=== PATIENT | female | born 1990 | race Caucasian/White ===

== ENCOUNTER → 2016-08-03 | Outpatient (CLI) | payer OTHER ==
[~2016-08-03] MED LIST: BUSP30TA PO; No meds per pt.
[2016-08-03 09:51] LABS: C-REACTIVE PROTEIN, QUANT 0.6 mg/dL (0.02-0.49)
== END | disposition home or self-care (01) ==
LOC: LAB 09:05
PROVIDERS: ATTEND Nurse Practitioner
DX: R53.83 Other fatigue (principal); R76.0 Raised antibody titer; M25.50 Pain in unspecified joint
CPT/HCPCS: 36415; 82550; 82570; 84156; 85651; 85730; 86140; 86160; 86225; 86235

== ENCOUNTER 2016-09-09 23:30 | Emergency (ER) | payer OTHER ==
[~2016-09-09] VITALS: Ht 165.1 cm; Wt 96.0 kg
[2016-09-09] MEDS ORDERED: LITH150C PO (23:40)
[2016-09-09] MEDS ORDERED: OLAN5TAB3 PO (23:40)
[2016-09-10] MEDS ORDERED: DIPHENHYDRAMINE 50 MG/ML, 1ML IM ONE
[2016-09-10] MEDS ORDERED: HALOPERIDOL 5 MG/ML IM ONE
[2016-09-10] MEDS ORDERED: LORazepam 2 MG/ML, 1ML IM ONE
[2016-09-10] MEDS ORDERED: HALOPERIDOL 5 MG/ML ONE (00:21)
[2016-09-10] MEDS ORDERED: DIPHENHYDRAMINE 50 MG/ML, 1ML ONE (00:21)
[2016-09-10] MEDS ORDERED: LORazepam 2 MG/ML, 1ML ONE (00:21)
[2016-09-10 00:53] VITALS: BP 118/82
== END 2016-09-10 00:56 | disposition home or self-care (01) ==
LOC: ED 23:59
DX: F23 Brief psychotic disorder (principal); F29 Unspecified psychosis not due to a substance or known physiological condition; F41.1 Generalized anxiety disorder; Z87.440 Personal history of urinary (tract) infections; Z88.8 Allergy status to other drugs, medicaments and biological substances
CPT/HCPCS: 96372; 99284; J1200; J1630; J2060

== ENCOUNTER → 2016-09-17 | Outpatient (CLI) | payer OTHER ==
[~2016-09-17] MED LIST changes: +LITH150C PO; +OLAN5TAB3 PO
== END | disposition home or self-care (01) ==
LOC: LAB 08:02
DX: F31.9 Bipolar disorder, unspecified (principal)
CPT/HCPCS: 36415; 82947; 83036

== ENCOUNTER 2016-09-24 20:26 | Emergency (ER) | payer OTHER ==
[~2016-09-24] VITALS: Ht 165.1 cm; Wt 98.7 kg
[2016-09-24] MEDS ORDERED: LITH300T3 PO (20:47)
[2016-09-24] MEDS ORDERED: ZIPRASIDONE 20MG CAPSULE PO ONE (22:01)
[2016-09-24] MEDS ORDERED: ZIPRASIDONE 20MG CAPSULE ONE (22:07)
[2016-09-24 23:16] VITALS: BP 120/71
== END 2016-09-24 23:20 | disposition home or self-care (01) ==
LOC: ED 20:43
DX: F41.1 Generalized anxiety disorder (principal); F31.9 Bipolar disorder, unspecified
CPT/HCPCS: 93005; 99284

== ENCOUNTER → 2016-10-13 | Outpatient (CLI) | payer OTHER ==
[~2016-10-13] MED LIST changes: +LITH300T3 PO
[2016-10-13 13:29] LABS: ASPARTATE AMINO TRANSFERASE 16 U/L (15-37); BLOOD UREA NITROGEN 13 mg/dL (7-18)
== END | disposition home or self-care (01) ==
LOC: LAB 13:01
PROVIDERS: ATTEND Nurse Practitioner Family
DX: E87.6 Hypokalemia (principal); F31.9 Bipolar disorder, unspecified; F41.9 Anxiety disorder, unspecified; R73.09 Other abnormal glucose
CPT/HCPCS: 36415; 80053; 80178; 83036